=== PATIENT | male | born 1995 | race Two or more races ===

== ENCOUNTER 2018-02-02 10:59 | Emergency (ER) | payer OTHER ==
[2018-02-02] MEDS ORDERED: LET GEL TOPICAL 1 EA SYR TP ONE (11:19)
[2018-02-02] MEDS ORDERED: TDAP ADULT 0.5 ML INJ (BOOSTRIX) IM ONE (11:19)
--- NOTE | 2018-02-02 11:26 | EDPHY ---
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 He was holding the call box wirer in his right hand and a cardboard box in his left hand. As he was trying to cut through the cardboard, he accidentally slipped and sliced his left thumb. He reports that it instantly started to bleed. He complained of only mild nonradiating pain initially and denies any at this time. He denies any decreased range of motion/paresthesias/weakness. Unsure of tetanus status. Modifying Factors: Direct pressure Comment: ROS: see HPI Constitutional: No fever, no chills, no weight loss Eyes: No blurred vision Respiratory: No shortness of breath, no cough Cardiovascular: No chest pain Gastrointestinal: No nausea, no vomiting no diarrhea Genitourinary: No dysuria Extremities: No myalgias Neurologic: No weakness, no numbness Skin: No rashes Hematologic: No bruising, no bleeding MEDICAL/SURGICAL/SOCIAL HISTORY: Medical history: Generally healthy. Does not take any regular medications. Surgical history: Denies Social history: Employed. Nonsmoker. CONSTITUTIONAL: Extremely pleasant young adult male, awake and alert, no obvious distress HEENT: Atraumatic and normocephalic. EXTREMITIES: 2/2 pulses, strength 5/5, left thumb lateral portion extending inferior to DIP joint and into the anatomical snuffbox superficial laceration 4 inches in length. DIP/PIP/MCP flexion/extension intact with good light touch sensation. no deformities, no clubbing, no cyanosis or edema. NEUROLOGICAL: no focal neuro deficits. GCS 15. Light touch sensation intact. SKIN: Warm and dry, no erythema. no rash. Good capillary refill. Source: Patient Exam Limitations: No limitations - Personal History Current Tetanus/Diphtheria Vaccine: Unsure Current Tetanus Diphtheria and Acellular Pertussis (TDAP): Unsure - Medical/Surgical History Hx Asthma: No Hx Chronic Respiratory Disease: No Hx Diabetes: No Hx Cardiac Disease: No Hx Renal Disease: No Hx Cirrhosis: No Hx Alcoholism: No Hx HIV/AIDS: No Hx Splenectomy or Spleen Trauma: No Other PMH: pmh: DENIES - Social History Smoking Status: Never smoked Constitutional: Initial Vital Signs Temperature (C) 36.6 C 02/02/18 11:08 Heart Rate 90 02/02/18 11:08 Respiratory Rate 18 02/02/18 11:08 Blood Pressure 140/95 H 02/02/18 11:08 O2 Sat (%) 99 02/02/18 11:08 O2 Delivery Mode Room Air Allergies/Adverse Reactions: No Known Allergies Allergy (Unverified 02/02/18 11:10) Home Medications: Medication Instructions Recorded NK [No Known Home Meds] 02/02/18 Medical Decision Making Procedures: Procedure: Laceration repair. Verbal consent was obtained from the patient. The 4 inch, simple, vertical laceration on the left thumb lateral portion was anesthetized in the usual fashion using 10 mL of 0.5% bupivacaine. The wound was irrigated, draped and explored to its base with a gloved finger. There were no deep structures involved. No tendon injury was identified. The wound was repaired with 4-0 Prolene continuous running. Good hemostasis was achieved and patient tolerated procedure well. Xeroform and clean sterile dressing applied. The procedure was performed by myself. Procedure: Splint placement. A left thumb spica Velcro splint was applied by the Emergency Room sample prep technician. After application of the splint I returned and re-examined the patient. The splint was adequately immobilizing the joint and distal to the splint the patient's circulation and sensation was intact. ED Course/Re-evaluation: Tetanus booster ordered LET applied and then local anesthesia provided. X-ray imaging not indicated. Laceration repair, dressing applied and then placed in Velcro thumb spica splint to help immobilize as laceration is over a joint space No signs of neurovascular compromise/tenting of skin/compartment syndrome/ extremities and joints examined above and below area of concern and are neurovascularly intact. This patient was seen under the supervision of my secondary supervising physician. I evaluated care for this patient independently. Discussed this patient with Dr. Morton who did not see the patient. Differential Diagnosis: Differential diagnosis includes but is not limited to vascular injury, nerve injury, tendon injury, foreign body - Data Points Medications Given: Discontinued Medications Diphtheria/Tetanus/Acell Pertussis (Boostrix) 0.5 ml IM .ONCE ONE Stop: 02/02/18 11:20 Last Admin: 02/02/18 11:44 Dose: 0.5 ml Tetracaine/Epinephrine/Lidocaine (Let Gel Topical) 1 ea TP EDNOW ONE Stop: 02/02/18 11:20 Last Admin: 02/02/18 11:45 Dose: 1 ea Departure - Departure Disposition: Home, Routine, Self-Care Clinical Impression: Laceration of left thumb without complication Qualifiers: Encounter type: initial encounter Qualified Code(s): S61.012A - Laceration without foreign body of left thumb without damage to nail, initial encounter Condition: Good Instructions: Care For Your Stitches (ED), Finger Laceration (ED) Additional Instructions: Keep the dressing/splint dry and in place for 3 days After 72 hours, you may remove the splint and dressing; wash the site daily with soap and water; then pat dry. Take Tylenol 650 mg every 4 hours and/or Ibuprofen 600 mg every 8 hours with food as needed for pain. Return to the ER immediately if you experience new or worsening pain, discoloration, numbness, tingling, or any other symptoms that concern you. Follow up with [facility] if you have symptoms of decreased range of motion and decreased sensation at which time they will evaluate and recommend with you if conservative management versus further adjuvant therapy is indicated. Wound Care Follow-Up: Removal of sutures in [10-14] days. Suture removal is complimentary in uncomplicated cases. Infection or abnormal findings would require reevaluation by the MD. In that case, you may be billed. Referrals: Alejo Davis MD [Medical Doctor] - As per Instructions
[2018-02-02 12:34] VITALS: BP 132/80
== END 2018-02-02 12:41 | disposition home or self-care (01) ==
PROC: 0HQGXZZ Repair Left Hand Skin, External Approach (ICD-10-PCS; principal; 2018-02-02)
DX: S61.012A Laceration without foreign body of left thumb without damage to nail, initial encounter (principal); Z23 Encounter for immunization; W45.8XXA Other foreign body or object entering through skin, initial encounter; Y92.69 Other specified industrial and construction area as the place of occurrence of the external cause; Y99.0 Civilian activity done for income or pay; Y93.89 Activity, other specified
CPT/HCPCS: L3807